=== PATIENT | male | born 1960 | race Caucasian/White ===

== ENCOUNTER 2018-08-25 08:52 | Day surgery (SDC) | payer MEDICAID ==
[2018-08-25] MEDS ORDERED: Lidocaine 2% 100 MG/5 ML Syringe IVPUSH ONE (08:53)
[2018-08-25] MEDS ORDERED: Propofol 200 MG/20 ML SDV IV ONE (08:53)
[2018-08-25] MEDS ORDERED: Lactated Ringers 1,000 ML IV SCH (09:00)
[2018-08-25] MEDS ORDERED: Sodium Chloride 0.9% 10 ML Syringe FLUSH PRN (09:00)
--- NOTE | 2018-08-25 10:54 | PCM.OPNOTE ---
- General Post-Op/Procedure Note Date of Surgery/Procedure: 08/25/18 Operative Procedure(s): egd with bx Findings: gastritis Pre Op Diagnosis: melena Post-Op Diagnosis: gastritis Anesthesia Technique: MAC Primary Surgeon: Artemio Varela Anesthesia Provider: Vance Barnett Pathology: stomach Complications: None Condition: Good Free Text/Narrative:: see dictation
[2018-08-25 12:29] VITALS: BP 147/96
--- NOTE | 2018-08-26 09:49 | OR ---
DATE OF OPERATION: 08/25/2018 SURGEON: Artemio Varela MD PROCEDURE PERFORMED: Upper endoscopy. PREOPERATIVE DIAGNOSIS: Melena. POSTOPERATIVE DIAGNOSIS: Gastritis. INDICATIONS FOR PROCEDURE: This is a 58-year-old white male, who has had a history of melenic stools. He also has a history of heavy alcohol abuse, was offered and accepted an upper endoscopy. DESCRIPTION OF OPERATION: After an excellent IV sedation was administered, the bite block was inserted. Flexible endoscope was passed without difficulty down the patient's esophagus into the stomach. The stomach was insufflated; scope passed through the pylorus to the second portion of the duodenum and slowly withdrawn. The following findings are noted: The duodenum is unremarkable. The stomach demonstrates diffuse gastritis. Multiple biopsies were taken. GE junction at approximately 40 cm. No evidence of esophageal varices was noted. The remainder of the esophageal exam was unremarkable. The stomach was deflated. Scope was removed. The patient tolerated the procedure well and was taken to recovery in good condition. /[id number] HERNANDO/ALESSANDRA
== END 2018-08-25 12:30 | disposition home or self-care (01) ==
LOC: FB.SDS 08:52
PROVIDERS: ATTEND Surgery
DX: K29.51 Unspecified chronic gastritis with bleeding (principal); K31.89 Other diseases of stomach and duodenum; F17.210 Nicotine dependence, cigarettes, uncomplicated; H52.4 Presbyopia; H52.209 Unspecified astigmatism, unspecified eye; Z88.0 Allergy status to penicillin; Z79.82 Long term (current) use of aspirin; Z79.899 Other long term (current) drug therapy
CPT/HCPCS: 36415; 43239; 85027; 88305; 88342; J2001; J2704; J7120

== ENCOUNTER 2023-07-21 14:51 | Emergency (ER) | payer MEDICAID ==
[2023-07-21] MEDS ORDERED: Sodium Chloride 0.9% 10 ML Syringe FLUSH PRN (14:57)
[2023-07-21] MEDS ORDERED: Ondansetron 4 MG/2 ML SDV IVPUSH ONE (14:58)
[2023-07-21] MEDS ORDERED: Sodium Chloride 0.9% 1,000 ML IV SCH (15:00)
[2023-07-21 15:07] LABS: BASOPHILS PERCENT AUTO 0.6 % (0.3-3.8); EOSINOPHILS PERCENT AUTO 0.3 % (0.1-6.8); HEMATOCRIT 49.6 % (38.3-50.1); LYMPHOCYTES PERCENT AUTO 12.6 % (15.8-45.3); MEAN CORPUSCULAR HEMOGLOBIN 32.3 pg (27.0-33.3); MEAN CORPUSCULAR HGB CONC 34.2 g/dL (28.7-35.3); MEAN CORPUSCULAR VOLUME 94.3 fL (80.8-98.7); MEAN PLATELET VOLUME 8.3 fL (6.7-11.0); MONOCYTES ABSOLUTE AUTO 0.4 x10-3/uL (0.0-1.2); MONOCYTES PERCENT AUTO 5.5 % (5.5-15.2); NEUTROPHILS ABSOLUTE AUTO 6.6 x10-3/uL (1.7-6.9); PLATELET COUNT,PLT 171 x10(3)uL (117-477); RED BLOOD CELL COUNT 5.26 x10(6)uL (3.90-5.90); RED CELL DISTRIBUTION WIDTH 14.4 % (12.4-15.0); WHITE BLOOD CELL COUNT,WBC 8.1 x10-3/uL (3.2-10.1)
[2023-07-21 15:14] LABS: BLOOD UREA NITROGEN,BUN 7 mg/dL (7-18); BUN/CREATININE RATIO 6.4 (9-20); CALCIUM 9.9 mg/dL (8.6-10.2); CARBON DIOXIDE,CO2 18 mmol/L (21-32); CHLORIDE,CL 103 mmol/L (100-110); CREATININE 1.1 mg/dL (0.70-1.30); ESTIMATED GFR 75 mL/min (>60); GLUCOSE RANDOM 151 mg/dL (80-116); POTASSIUM,K 3.8 mmol/L (3.5-5.3); SODIUM,NA 140 mmol/L (135-145)
[2023-07-21 15:27] LABS: ALANINE AMINOTRANSFERASE,ALT 22 U/L (12-36); ALBUMIN 4.1 g/dL (3.2-4.6); ALKALINE PHOSPHATASE 56 IU/L (56-112); AMYLASE 50 U/L (25-115); ASPARTATE AMNIOTRANSFERASE,AST 31 IU/L (5-25); BILIRUBIN TOTAL 0.9 mg/dL (0.1-1.3); MAGNESIUM 1.7 mg/dL (1.8-2.5); PHOSPHORUS 2.1 mg/dL (2.6-4.6); PROTEIN TOTAL,TP 8.2 g/dL (6.0-8.0)
[2023-07-21] MEDS ORDERED: Diazepam 5 MG Tab PO ONE (16:10)
[2023-07-21 17:40] VITALS: BP 154/98; PULSE 89
== END 2023-07-21 17:45 | disposition home or self-care (01) ==
LOC: FB.ED 14:51
DX: F10.239 Alcohol dependence with withdrawal, unspecified (principal); J45.909 Unspecified asthma, uncomplicated; F17.210 Nicotine dependence, cigarettes, uncomplicated; Z88.0 Allergy status to penicillin; Z79.899 Other long term (current) drug therapy
CPT/HCPCS: 36415; 71045; 80053; 80307; 82150; 83690; 83735; 84100; 85025; 96361; 96374; 99283; 99285; A9270; J2405; J3490; J7030

== ENCOUNTER 2024-06-19 22:04 | Emergency (ER) | payer MEDICAID ==
[2024-06-19 22:27] LABS: BASOPHILS PERCENT AUTO 0.6 % (0.3-3.8); EOSINOPHILS PERCENT AUTO 0.1 % (0.1-6.8); HEMATOCRIT 44.9 % (38.3-50.1); HEMOGLOBIN 15.4 g/dL (12.9-17.7); MEAN CORPUSCULAR HEMOGLOBIN 31.9 pg (27.0-33.3); MEAN CORPUSCULAR HGB CONC 34.2 g/dL (28.7-35.3); MEAN CORPUSCULAR VOLUME 93.1 fL (80.8-98.7); MEAN PLATELET VOLUME 8.3 fL (6.7-11.0); MONOCYTES ABSOLUTE AUTO 0.5 x10-3/uL (0.0-1.2); MONOCYTES PERCENT AUTO 6.8 % (5.5-15.2); NEUTROPHILS ABSOLUTE AUTO 5.9 x10-3/uL (1.7-6.9); NEUTROPHILS PERCENT AUTO 79.5 % (40.3-71.8); PLATELET COUNT,PLT 67 x10(3)uL (117-477); RED BLOOD CELL COUNT 4.82 x10(6)uL (3.90-5.90); RED CELL DISTRIBUTION WIDTH 15.7 % (12.4-15.0); WHITE BLOOD CELL COUNT,WBC 7.4 x10-3/uL (3.2-10.1)
[2024-06-19 22:34] VITALS: BP 122/86; PULSE 72
[2024-06-19 22:44] LABS: A/G RATIO 1.1; ALANINE AMINOTRANSFERASE,ALT 28 U/L (12-36); ALKALINE PHOSPHATASE 56 IU/L (56-112); ASPARTATE AMNIOTRANSFERASE,AST 38 IU/L (5-25); BILIRUBIN TOTAL 1.1 mg/dL (0.1-1.3); BLOOD UREA NITROGEN,BUN 7 mg/dL (7-18); CALCIUM 9.7 mg/dL (8.6-10.2); CARBON DIOXIDE,CO2 25 mmol/L (21-32); CHLORIDE,CL 98 mmol/L (100-110); ESTIMATED GFR 84 mL/min (>60); GLUCOSE RANDOM 93 mg/dL (80-116); PROTEIN TOTAL,TP 7.7 g/dL (6.0-8.0); SODIUM,NA 140 mmol/L (135-145)
[2024-06-19 22:45] LABS: TROPONIN I 9.1 pg/mL (4.0-60.3)
[2024-06-19 22:53] LABS: POTASSIUM,K 2.8 mmol/L (3.5-5.3)
[2024-06-19 22:54] LABS: ETHANOL BLOOD MEDICAL 0.15 % (<0.03)
[2024-06-20] MEDS: Potassium Chloride 20 MEQ Tab.ER PO ONE (01:12)
== END 2024-06-20 03:01 | disposition home or self-care (01) ==
LOC: FB.ED 22:04
DX: F10.229 Alcohol dependence with intoxication, unspecified (principal); E87.6 Hypokalemia; J45.909 Unspecified asthma, uncomplicated; Z88.0 Allergy status to penicillin; Z79.899 Other long term (current) drug therapy; Y90.0 Blood alcohol level of less than 20 mg/100 ml
CPT/HCPCS: 36415; 71045; 80053; 80307; 84484; 85025; 99284; A9270

== ENCOUNTER 2024-06-25 21:04 | Emergency (ER) | payer MEDICAID ==
[2024-06-25] MEDS ORDERED: Sodium Chloride 0.9% 10 ML Syringe FLUSH PRN (21:09)
[2024-06-25] MEDS: Sodium Chloride 0.9% 1,000 ML IV SCH ×3 (21:31→23:54)
[2024-06-25] MEDS: Prochlorperazine 10 MG/2 ML SDV IVPUSH ONE (21:33)
[2024-06-25] MEDS: Thiamine 200 MG/2 ML MDV IVPUSH ONE (21:34)
[2024-06-25] MEDS: LORazepam 2 MG/ML SDV IVPUSH ONE (21:36)
[2024-06-25 21:38] LABS: BASOPHILS PERCENT AUTO 0.2 % (0.3-3.8); HEMATOCRIT 49.4 % (38.3-50.1); HEMOGLOBIN 15.5 g/dL (12.9-17.7); LYMPHOCYTES PERCENT AUTO 8.2 % (15.8-45.3); MEAN CORPUSCULAR HEMOGLOBIN 32.1 pg (27.0-33.3); MEAN CORPUSCULAR HGB CONC 31.5 g/dL (28.7-35.3); MEAN CORPUSCULAR VOLUME 101.8 fL (80.8-98.7); MEAN PLATELET VOLUME 8.2 fL (6.7-11.0); MONOCYTES ABSOLUTE AUTO 1.3 x10-3/uL (0.0-1.2); MONOCYTES PERCENT AUTO 10.3 % (5.5-15.2); NEUTROPHILS ABSOLUTE AUTO 9.9 x10-3/uL (1.7-6.9); NEUTROPHILS PERCENT AUTO 81.3 % (40.3-71.8); PLATELET COUNT,PLT 144 x10(3)uL (117-477); RED CELL DISTRIBUTION WIDTH 17.6 % (12.4-15.0); WHITE BLOOD CELL COUNT,WBC 12.2 x10-3/uL (3.2-10.1)
[2024-06-25 21:50] LABS: ALANINE AMINOTRANSFERASE,ALT 76 U/L (12-36); ALKALINE PHOSPHATASE 73 IU/L (56-112); ASPARTATE AMNIOTRANSFERASE,AST 107 IU/L (5-25); BILIRUBIN TOTAL 0.4 mg/dL (0.1-1.3); BLOOD UREA NITROGEN,BUN 28 mg/dL (7-18); BUN/CREATININE RATIO 9.3 (9-20); CALCIUM 8.5 mg/dL (8.6-10.2); CHLORIDE,CL 98 mmol/L (100-110); ESTIMATED GFR 22 mL/min (>60); GLUCOSE RANDOM 253 mg/dL (80-116); POTASSIUM,K 4.4 mmol/L (3.5-5.3); SODIUM,NA 145 mmol/L (135-145)
[2024-06-25 21:54] LABS: CARBON DIOXIDE,CO2 5 mmol/L (21-32)
[2024-06-25 21:56] LABS: RED BLOOD CELL COUNT 4.85 x10(6)uL (3.90-5.90)
[2024-06-25 22:01] LABS: MAGNESIUM 2.5 mg/dL (1.8-2.5)
[2024-06-25 22:04] LABS: PHOSPHORUS 12.1 mg/dL (2.6-4.6)
[2024-06-25 22:29] LABS: LACTIC ACID 15.1 mmol/L (0.4-2.0)
[2024-06-25] MEDS: Cefepime 1 GM Vial IVPUSH ONE (23:07)
[2024-06-25] MEDS: VANCOmycin 1.5 GM/300 ML 1.5 GM in Premix Bag 1 BAG IV ONE (23:09)
[2024-06-26] LABS: BILIRUBIN,URINE NEGATIVE (NEGATIVE); GLUCOSE,URINE NORMAL (NORMAL); KETONES,URINE 50 mg/dL (NEGATIVE); LEUKOCYTE ESTERASE,URINE NEGATIVE (NEGATIVE); NITRITE,URINE NEGATIVE (NEGATIVE); OCCULT BLOOD,URINE LARGE (NEGATIVE); PROTEIN,URINE 30 mg/dL (NEGATIVE); UROBILINOGEN,URINE NORMAL (NEGATIVE)
[2024-06-26 00:01] LABS: APPEARANCE,URINE SLIGHTLY CLOUDY (CLEAR); COLOR,URINE YELLOW (YELLOW)
[2024-06-26 00:09] LABS: AMORPHOUS SEDIMENT,URINE FEW; BACTERIA,URINE FEW (NS); SQUAMOUS EPITHELIAL CELLS,UR FEW (NS,R,O); WBC,URINE 0-5 (0-5)
[2024-06-26 00:14] LABS: AMPHETAMINES SCREEN, URINE NEGATIVE (NEGATIVE); BARBITURATE SCREEN,URINE NEGATIVE (NEGATIVE); BENZODIAZEPINES SCREEN,URINE NEGATIVE (NEGATIVE); BUPRENORPHINE SCREEN,URINE NEGATIVE (NEGATIVE); METHADONE SCREEN, URINE NEGATIVE (NEGATIVE); METHAMPHETAMINE SCREEN, URINE NEGATIVE (NEGATIVE); OXYCODONE SCREEN,URINE NEGATIVE (NEGATIVE); THC SCREEN,URINE NEGATIVE (NEGATIVE)
[2024-06-26 00:36] LABS: BLOOD UREA NITROGEN,BUN 26 mg/dL (7-18); BUN/CREATININE RATIO 11.3 (9-20); CALCIUM 7.3 mg/dL (8.6-10.2); CHLORIDE,CL 103 mmol/L (100-110); ESTIMATED GFR 31 mL/min (>60); GLUCOSE RANDOM 232 mg/dL (80-116); POTASSIUM,K 5.1 mmol/L (3.5-5.3); SODIUM,NA 145 mmol/L (135-145)
[2024-06-26 00:38] LABS: CARBON DIOXIDE,CO2 8 mmol/L (21-32); CREATININE 2.3 mg/dL (0.70-1.30)
[2024-06-26 00:47] LABS: TROPONIN I 26.9 pg/mL (4.0-60.3)
[2024-06-26 01:11] LABS: BASOPHILS PERCENT AUTO 0.3 % (0.3-3.8); HEMATOCRIT 42.3 % (38.3-50.1); HEMOGLOBIN 13.7 g/dL (12.9-17.7); LYMPHOCYTES ABSOLUTE AUTO 0.6 x10-3/uL (0.5-4.5); LYMPHOCYTES PERCENT AUTO 6.1 % (15.8-45.3); MEAN CORPUSCULAR HEMOGLOBIN 32.2 pg (27.0-33.3); MEAN CORPUSCULAR HGB CONC 32.4 g/dL (28.7-35.3); MEAN CORPUSCULAR VOLUME 99.2 fL (80.8-98.7); MEAN PLATELET VOLUME 7.9 fL (6.7-11.0); MONOCYTES ABSOLUTE AUTO 1.3 x10-3/uL (0.0-1.2); MONOCYTES PERCENT AUTO 12.2 % (5.5-15.2); NEUTROPHILS ABSOLUTE AUTO 8.4 x10-3/uL (1.7-6.9); NEUTROPHILS PERCENT AUTO 81.4 % (40.3-71.8); PLATELET COUNT,PLT 110 x10(3)uL (117-477); RED CELL DISTRIBUTION WIDTH 16.9 % (12.4-15.0); WHITE BLOOD CELL COUNT,WBC 10.4 x10-3/uL (3.2-10.1)
[2024-06-26 01:18] LABS: RED BLOOD CELL COUNT 4.26 x10(6)uL (3.90-5.90)
[2024-06-26 06:09] LABS: BASOPHILS PERCENT AUTO 0.3 % (0.3-3.8); EOSINOPHILS PERCENT AUTO 0.3 % (0.1-6.8); HEMATOCRIT 38.2 % (38.3-50.1); HEMOGLOBIN 12.9 g/dL (12.9-17.7); LYMPHOCYTES ABSOLUTE AUTO 0.6 x10-3/uL (0.5-4.5); LYMPHOCYTES PERCENT AUTO 8.1 % (15.8-45.3); MEAN CORPUSCULAR HEMOGLOBIN 32.1 pg (27.0-33.3); MEAN CORPUSCULAR HGB CONC 33.8 g/dL (28.7-35.3); MEAN PLATELET VOLUME 7.7 fL (6.7-11.0); MONOCYTES ABSOLUTE AUTO 1.5 x10-3/uL (0.0-1.2); MONOCYTES PERCENT AUTO 19.9 % (5.5-15.2); NEUTROPHILS ABSOLUTE AUTO 5.5 x10-3/uL (1.7-6.9); NEUTROPHILS PERCENT AUTO 71.4 % (40.3-71.8); PLATELET COUNT,PLT 105 x10(3)uL (117-477); RED CELL DISTRIBUTION WIDTH 16.3 % (12.4-15.0); WHITE BLOOD CELL COUNT,WBC 7.7 x10-3/uL (3.2-10.1)
[2024-06-26 06:17] LABS: ALANINE AMINOTRANSFERASE,ALT 56 U/L (12-36); ALBUMIN 2.9 g/dL (3.2-4.6); ALKALINE PHOSPHATASE 47 IU/L (56-112); ASPARTATE AMNIOTRANSFERASE,AST 67 IU/L (5-25); BILIRUBIN TOTAL 0.5 mg/dL (0.1-1.3); BLOOD UREA NITROGEN,BUN 23 mg/dL (7-18); BUN/CREATININE RATIO 12.8 (9-20); CALCIUM 7.4 mg/dL (8.6-10.2); CARBON DIOXIDE,CO2 21 mmol/L (21-32); CHLORIDE,CL 108 mmol/L (100-110); CREATININE 1.8 mg/dL (0.70-1.30); ESTIMATED GFR 42 mL/min (>60); GLUCOSE RANDOM 250 mg/dL (80-116); POTASSIUM,K 4.6 mmol/L (3.5-5.3); PROTEIN TOTAL,TP 5.9 g/dL (6.0-8.0); SODIUM,NA 143 mmol/L (135-145)
[2024-06-26 06:21] LABS: LACTIC ACID 1.9 mmol/L (0.4-2.0)
[2024-06-26 06:31] LABS: RED BLOOD CELL COUNT 4.02 x10(6)uL (3.90-5.90)
[2024-06-26] MEDS: Sodium Chloride 0.9% 1,000 ML IV SCH (07:00)
[2024-06-26] MEDS ORDERED: Cefepime 1 GM Vial IVPUSH ONE (07:33)
[2024-06-26] MEDS ORDERED: VANCOmycin 1.5 GM/300 ML 1.5 GM in Premix Bag 1 BAG IV ONE (07:33)
[2024-06-26] MEDS: LORazepam 2 MG/ML SDV IVPUSH ONE (07:50)
[2024-06-26] MEDS: Cefepime 2 GM Vial IV ONE (08:07)
[2024-06-26 08:59] VITALS: BP 103/64; PULSE 95
[2024-06-26] MEDS ORDERED: VANCOmycin 1 GM/200 ML 1 GM in Premix Bag 1 BAG IV SCH (21:00)
== END 2024-06-26 08:40 ==
LOC: FB.ED 21:04
DX: A41.9 Sepsis, unspecified organism (principal); F10.239 Alcohol dependence with withdrawal, unspecified; N17.9 Acute kidney failure, unspecified; E86.0 Dehydration; F17.210 Nicotine dependence, cigarettes, uncomplicated; Z88.0 Allergy status to penicillin
CPT/HCPCS: 36415; 71045; 74176; 80048; 80053; 80307; 81001; 83605; 83690; 83735; 83880; 84100; 84484; 85025; 86140; 87040; 87428; 93005; 96361; 96365; 96366; 96375; 96376; 99285; J0692; J0780; J2060; J3372; J3411; J7030; 81003

== ENCOUNTER 2024-08-22 22:46 | Emergency (ER) | payer MEDICAID ==
[2024-08-23 01:27] VITALS: BP 129/79; PULSE 79
== END 2024-08-23 00:56 | disposition home or self-care (01) ==
LOC: FB.ED 22:46
DX: S80.02XA Contusion of left knee, initial encounter (principal); J45.909 Unspecified asthma, uncomplicated; F17.210 Nicotine dependence, cigarettes, uncomplicated; Z88.0 Allergy status to penicillin; Z79.899 Other long term (current) drug therapy; W00.0XXA Fall on same level due to ice and snow, initial encounter
CPT/HCPCS: 73562-LT; 99283

== ENCOUNTER 2025-02-15 08:41 | Emergency (ER) | payer MEDICARE, MEDICAID ==
[2025-02-15] MEDS: LORazepam 2 MG/ML SDV IVPUSH ONE (09:03)
[2025-02-15] MEDS: Sodium Chloride 0.9% 10 ML Syringe FLUSH PRN (09:05)
[2025-02-15 09:31] LABS: MEAN PLATELET VOLUME 8.9 fL (6.7-11.0); PLATELET COUNT,PLT 109 x10(3)uL (117-477); RED BLOOD CELL COUNT 4.46 x10(6)uL (3.90-5.90); RED CELL DISTRIBUTION WIDTH 16.1 % (12.4-15.0); WHITE BLOOD CELL COUNT,WBC 9.3 x10-3/uL (3.2-10.1)
[2025-02-15 09:32] LABS: BLOOD UREA NITROGEN,BUN 14 mg/dL (7-18); CARBON DIOXIDE,CO2 14 mmol/L (21-32); CHLORIDE,CL 97 mmol/L (100-110); CREATININE 1.5 mg/dL (0.70-1.30); EST CRCL DRUG DOSING (CG) 48.29 mL/min; ESTIMATED GFR 51 mL/min (>60); GLUCOSE RANDOM 248 mg/dL (80-116); POTASSIUM,K 5.0 mmol/L (3.5-5.3); SODIUM,NA 139 mmol/L (135-145)
[2025-02-15 09:38] LABS: A/G RATIO 0.9; ALANINE AMINOTRANSFERASE,ALT 28 U/L (12-36); ASPARTATE AMNIOTRANSFERASE,AST 46 IU/L (5-25); BILIRUBIN TOTAL 0.8 mg/dL (0.1-1.3); PROTEIN TOTAL,TP 7.7 g/dL (6.0-8.0)
[2025-02-15 09:41] LABS: ETHANOL BLOOD MEDICAL < 0.03 % (<0.03)
[2025-02-15 09:47] LABS: LYMPHOCYTES PERCENT MAN 7 % (13-37); MONOCYTES PERCENT MAN 7 % (4-12); SEG NEUTROPHILS PERCENT MAN 86 % (46-82)
[2025-02-15 09:49] LABS: LACTIC ACID 10.1 mmol/L (0.4-2.0)
[2025-02-15 11:19] LABS: GLUCOSE,URINE NORMAL (NORMAL); OCCULT BLOOD,URINE LARGE (NEGATIVE)
[2025-02-15 11:38] LABS: APPEARANCE,URINE CLEAR (CLEAR)
[2025-02-15 12:19] LABS: EPITHELIAL CELLS,URINE FEW
[2025-02-15 17:27] VITALS: BP 115/86; PULSE 117
== END 2025-02-15 17:18 | disposition home or self-care (01) ==
LOC: FB.ED 08:41
DX: F10.239 Alcohol dependence with withdrawal, unspecified (principal); E86.0 Dehydration; F17.210 Nicotine dependence, cigarettes, uncomplicated; Z79.899 Other long term (current) drug therapy; Z88.0 Allergy status to penicillin; Y90.9 Presence of alcohol in blood, level not specified
CPT/HCPCS: 36415; 80053; 80307; 81001; 83605; 83690; 84484; 85025; 86140; 93005; 93010; 96361; 96374; 99284; 99285; A9270; J2060; J7030

== ENCOUNTER 2025-02-16 08:37 | Emergency (ER) | payer MEDICARE, MEDICAID ==
[2025-02-16] MEDS ORDERED: Sodium Chloride 0.9% 10 ML Syringe FLUSH PRN (09:02)
[2025-02-16 09:32] LABS: BASOPHILS ABSOLUTE AUTO 0.0 x10-3/uL (0.0-0.3); BASOPHILS PERCENT AUTO 0.2 % (0.3-3.8); EOSINOPHILS ABSOLUTE AUTO 0.0 x10-3/uL (0.0-0.6); EOSINOPHILS PERCENT AUTO 0.0 % (0.1-6.8); LYMPHOCYTES ABSOLUTE AUTO 1.1 x10-3/uL (0.5-4.5); LYMPHOCYTES PERCENT AUTO 12.9 % (15.8-45.3); MEAN PLATELET VOLUME 8.7 fL (6.7-11.0); MONOCYTES ABSOLUTE AUTO 0.6 x10-3/uL (0.0-1.2); MONOCYTES PERCENT AUTO 7.1 % (5.5-15.2); NEUTROPHILS ABSOLUTE AUTO 7.1 x10-3/uL (1.7-6.9); NEUTROPHILS PERCENT AUTO 79.8 % (40.3-71.8); PLATELET COUNT,PLT 76 x10(3)uL (117-477); RED BLOOD CELL COUNT 4.06 x10(6)uL (3.90-5.90); RED CELL DISTRIBUTION WIDTH 16.1 % (12.4-15.0); WHITE BLOOD CELL COUNT,WBC 8.9 x10-3/uL (3.2-10.1)
[2025-02-16 09:40] LABS: A/G RATIO 0.9; ALANINE AMINOTRANSFERASE,ALT 25 U/L (12-36); ASPARTATE AMNIOTRANSFERASE,AST 43 IU/L (5-25); BILIRUBIN TOTAL 0.5 mg/dL (0.1-1.3); BLOOD UREA NITROGEN,BUN 11 mg/dL (7-18); CARBON DIOXIDE,CO2 23 mmol/L (21-32); CHLORIDE,CL 104 mmol/L (100-110); CREATININE 1.1 mg/dL (0.70-1.30); EST CRCL DRUG DOSING (CG) 65.72 mL/min; ESTIMATED GFR 75 mL/min (>60); GLUCOSE RANDOM 92 mg/dL (80-116); POTASSIUM,K 3.5 mmol/L (3.5-5.3); PROTEIN TOTAL,TP 6.6 g/dL (6.0-8.0); SODIUM,NA 141 mmol/L (135-145)
[2025-02-16 12:17] VITALS: PULSE 80
[2025-02-16 15:36] VITALS: BP 103/70
== END 2025-02-16 15:42 | disposition other institution (70) ==
LOC: FB.ED 08:37
DX: F10.129 Alcohol abuse with intoxication, unspecified (principal); F10.139 Alcohol abuse with withdrawal, unspecified; E86.0 Dehydration; E87.20 Acidosis, unspecified; F17.200 Nicotine dependence, unspecified, uncomplicated; Z88.0 Allergy status to penicillin; Z79.899 Other long term (current) drug therapy; Y90.9 Presence of alcohol in blood, level not specified
CPT/HCPCS: 36415; 70450; 73502; 80053; 80307; 83605; 83735; 85025; 96360; 96361; 99283; 99285; J7030

== ENCOUNTER 2025-03-01 19:38 | Emergency (ER) | payer MEDICAID, MEDICARE ==
[2025-03-01] MEDS ORDERED: Sodium Chloride 0.9% 10 ML Syringe FLUSH PRN (20:03)
[2025-03-01] MEDS: Prochlorperazine 10 MG/2 ML SDV IVPUSH ONE (20:20)
[2025-03-01] MEDS: Thiamine 200 MG/2 ML MDV IVPUSH ONE (20:23)
[2025-03-01 20:24] LABS: MEAN PLATELET VOLUME 8.8 fL (6.7-11.0); PLATELET COUNT,PLT 130 x10(3)uL (117-477); RED BLOOD CELL COUNT 4.06 x10(6)uL (3.90-5.90); RED CELL DISTRIBUTION WIDTH 16.2 % (12.4-15.0); WHITE BLOOD CELL COUNT,WBC 22.0 x10-3/uL (3.2-10.1)
[2025-03-01 20:26] LABS: BLOOD UREA NITROGEN,BUN 18 mg/dL (7-18); CARBON DIOXIDE,CO2 21 mmol/L (21-32); CHLORIDE,CL 92 mmol/L (100-110); CREATININE 1.6 mg/dL (0.70-1.30); EST CRCL DRUG DOSING (CG) 47.25 mL/min; ESTIMATED GFR 48 mL/min (>60); GLUCOSE RANDOM 213 mg/dL (80-116); POTASSIUM,K 3.9 mmol/L (3.5-5.3); SODIUM,NA 133 mmol/L (135-145)
[2025-03-01 20:32] LABS: A/G RATIO 0.8; ALANINE AMINOTRANSFERASE,ALT 53 U/L (12-36); ASPARTATE AMNIOTRANSFERASE,AST 96 IU/L (5-25); BILIRUBIN TOTAL 1.3 mg/dL (0.1-1.3); PROTEIN TOTAL,TP 7.2 g/dL (6.0-8.0)
[2025-03-01 20:33] LABS: ETHANOL BLOOD MEDICAL < 0.03 % (<0.03)
[2025-03-01 20:36] LABS: BAND PERCENT MAN 6 % (0-6); LYMPHOCYTES PERCENT MAN 1 % (13-37); MONOCYTES PERCENT MAN 1 % (4-12); SEG NEUTROPHILS PERCENT MAN 92 % (46-82)
[2025-03-01 21:25] LABS: LACTIC ACID 11.9 mmol/L (0.4-2.0)
[2025-03-01] MEDS: Iopamidol 755 Mg/ML 100 ML Bottle IV SCH (21:29)
[2025-03-01 21:45] LABS: GLUCOSE,URINE NORMAL (NORMAL); OCCULT BLOOD,URINE LARGE (NEGATIVE)
[2025-03-01 21:50] LABS: APPEARANCE,URINE CLEAR (CLEAR); SQUAMOUS EPITHELIAL CELLS,UR FEW (NS,R,O)
[2025-03-01 21:52] LABS: BASE EXCESS VENOUS,POC -3 mmol/L (-2 - 3+); PCO2 VENOUS,POC 36 mmHg (41-51); PH VENOUS,POC 7.39 pH Units (7.32-7.43)
[2025-03-01 21:52] LABS: AMPHETAMINES SCREEN, URINE NEGATIVE (NEGATIVE); BUPRENORPHINE SCREEN,URINE NEGATIVE (NEGATIVE); METHADONE SCREEN, URINE NEGATIVE (NEGATIVE); METHAMPHETAMINE SCREEN, URINE NEGATIVE (NEGATIVE); OXYCODONE SCREEN,URINE NEGATIVE (NEGATIVE)
[2025-03-01] MEDS: Levofloxacin/Dextrose 5%-Water 500 MG in Premix Bag 1 BAG IV ONE (23:38)
[2025-03-01] MEDS: VANCOmycin 1.25 GM/250 ML 1.25 GM in Premix Bag 1 BAG IV ONE (23:51)
[2025-03-02 01:48] VITALS: BP 102/70; PULSE 98
== END 2025-03-02 01:35 ==
LOC: FB.ED 19:38
DX: K70.0 Alcoholic fatty liver (principal); K85.20 Alcohol induced acute pancreatitis without necrosis or infection; F10.139 Alcohol abuse with withdrawal, unspecified; K92.2 Gastrointestinal hemorrhage, unspecified; F17.210 Nicotine dependence, cigarettes, uncomplicated; Z88.0 Allergy status to penicillin; Y90.9 Presence of alcohol in blood, level not specified
CPT/HCPCS: 36415; 71045; 74177; 80053; 80307; 81001; 83605; 83690; 85018; 85025; 86140; 87040; 87077; 87186; 93005; 96361; 96365; 96366; 96375; 99285; J0780; J1956; J2470; J3360; J3375; J3411; J7030; Q9967; 93010

== ENCOUNTER 2025-04-29 18:59 | Emergency (ER) | payer MEDICAID, MEDICARE ==
[2025-04-29] MEDS ORDERED: Sodium Chloride 0.9% 10 ML Syringe FLUSH PRN (19:08)
[2025-04-29 19:49] LABS: BASOPHILS ABSOLUTE AUTO 0.0 x10-3/uL (0.0-0.3); BASOPHILS PERCENT AUTO 0.1 % (0.3-3.8); EOSINOPHILS ABSOLUTE AUTO 0.0 x10-3/uL (0.0-0.6); EOSINOPHILS PERCENT AUTO 0.0 % (0.1-6.8); LYMPHOCYTES ABSOLUTE AUTO 0.7 x10-3/uL (0.5-4.5); LYMPHOCYTES PERCENT AUTO 8.3 % (15.8-45.3); MEAN PLATELET VOLUME 8.7 fL (6.7-11.0); MONOCYTES ABSOLUTE AUTO 0.6 x10-3/uL (0.0-1.2); MONOCYTES PERCENT AUTO 7.2 % (5.5-15.2); NEUTROPHILS ABSOLUTE AUTO 7.2 x10-3/uL (1.7-6.9); NEUTROPHILS PERCENT AUTO 84.4 % (40.3-71.8); PLATELET COUNT,PLT 161 x10(3)uL (117-477); RED CELL DISTRIBUTION WIDTH 17.8 % (12.4-15.0); WHITE BLOOD CELL COUNT,WBC 8.5 x10-3/uL (3.2-10.1)
[2025-04-29 19:51] LABS: BASE EXCESS VENOUS,POC -21 mmol/L (-2 - 3+); PCO2 VENOUS,POC 29 mmHg (41-51)
[2025-04-29 19:52] LABS: PH VENOUS,POC 7.05 pH Units (7.32-7.43)
[2025-04-29 20:01] LABS: RED BLOOD CELL COUNT 4.62 x10(6)uL (3.90-5.90)
[2025-04-29 20:07] LABS: A/G RATIO 0.8; ALANINE AMINOTRANSFERASE,ALT 21 U/L (12-36); ASPARTATE AMNIOTRANSFERASE,AST 58 IU/L (5-25); BILIRUBIN TOTAL 0.7 mg/dL (0.1-1.3); BLOOD UREA NITROGEN,BUN 16 mg/dL (7-18); CARBON DIOXIDE,CO2 9 mmol/L (21-32); CHLORIDE,CL 100 mmol/L (100-110); CREATININE 1.8 mg/dL (0.70-1.30); EST CRCL DRUG DOSING (CG) 42.25 mL/min; ESTIMATED GFR 41 mL/min (>60); GLUCOSE RANDOM 76 mg/dL (80-116); POTASSIUM,K 4.8 mmol/L (3.5-5.3); PROTEIN TOTAL,TP 7.4 g/dL (6.0-8.0); SODIUM,NA 142 mmol/L (135-145)
[2025-04-29 20:07] LABS: ETHANOL BLOOD MEDICAL 0.24 % (<0.03); PRO B-TYPE NATRIUR PEPT,BNPPRO 802.0 pg/mL (<=125)
[2025-04-29 20:37] LABS: BASE EXCESS ARTERIAL,POC -21 mmol/L (-2 - 3+); HCO3 ARTERIAL,POC 7 mmol/L (21-28); O2 SATURATION ARTERIAL,POC 97.7 % (94-98); PO2 ARTERIAL,POC 131 mmHg (83-108)
[2025-04-29] MEDS: Ondansetron 4 MG/2 ML SDV IVPUSH ONE (21:37)
[2025-04-29 22:20] LABS: GLUCOSE,URINE NORMAL (NORMAL); OCCULT BLOOD,URINE LARGE (NEGATIVE)
[2025-04-29 22:21] LABS: APPEARANCE,URINE CLEAR (CLEAR)
[2025-04-29 22:26] LABS: FINE GRANULAR CASTS,URINE RARE (NS); SQUAMOUS EPITHELIAL CELLS,UR OCCASIONAL (NS,R,O)
[2025-04-29 22:57] LABS: AMPHETAMINES SCREEN, URINE NEGATIVE (NEGATIVE); BUPRENORPHINE SCREEN,URINE NEGATIVE (NEGATIVE); METHADONE SCREEN, URINE NEGATIVE (NEGATIVE); METHAMPHETAMINE SCREEN, URINE NEGATIVE (NEGATIVE); OXYCODONE SCREEN,URINE NEGATIVE (NEGATIVE)
[2025-04-29 23:02] LABS: BASE EXCESS ARTERIAL,POC -22 mmol/L (-2 - 3+); HCO3 ARTERIAL,POC 6 mmol/L (21-28); O2 SATURATION ARTERIAL,POC 93.7 % (94-98); PO2 ARTERIAL,POC 93 mmHg (83-108)
[2025-04-29 23:03] LABS: BLOOD UREA NITROGEN,BUN 17 mg/dL (7-18); CHLORIDE,CL 101 mmol/L (100-110); CREATININE 1.8 mg/dL (0.70-1.30); EST CRCL DRUG DOSING (CG) 42.25 mL/min; ESTIMATED GFR 41 mL/min (>60); GLUCOSE RANDOM 84 mg/dL (80-116); POTASSIUM,K 4.9 mmol/L (3.5-5.3); SODIUM,NA 144 mmol/L (135-145)
[2025-04-29 23:04] LABS: CARBON DIOXIDE,CO2 10 mmol/L (21-32)
[2025-04-30 00:59] VITALS: BP 115/65; PULSE 118
== END 2025-04-30 ==
LOC: FB.ED 18:59
DX: F10.20 Alcohol dependence, uncomplicated (principal); J45.909 Unspecified asthma, uncomplicated; Z88.0 Allergy status to penicillin; Y90.0 Blood alcohol level of less than 20 mg/100 ml
CPT/HCPCS: 36415; 70450; 71045; 80048; 80053; 80179; 80307; 81001; 82803; 83605; 83880; 84484; 84550; 85025; 87040; 87428-QW; 93005; 93010; 96361; 96374; 96375; 99285; 99285-25; J0696; J2405; J7030; J7040